=== PATIENT | male | born 1950 | race Caucasian/White ===

== ENCOUNTER 2024-07-09 20:49 | Emergency (ER) | payer MEDICARE, SELFPAY ==
[2024-07-09 20:51] VITALS: BP 122/82
--- NOTE | 2024-07-09 21:27 | ED.GENMED ---
History of Present Illness
General
Chief Complaint: Abdominal Symptoms
Source: patient and spouse
Time Seen by Provider: 07/09/24 21:04
History of Present Illness
History of Present Illness:
This patient is a 74-year-old male who says that yesterday afternoon/early evening he developed nonbloody diarrhea estimated approximately every 30 minutes. Then, this morning he also developed repeated episodes of nonbloody vomiting. He went to
the urgent care 1 PM and was prescribed medications which have not helped him which prompted his visit here. He denies fever, sick contacts, potentially spoiled food, recent travel, chest pain, dyspnea, back pain, urinary symptoms. When asked
about pain in his abdomen he says it is 'not really' pain but rather crampy discomfort just before bowel movement, otherwise no discomfort.
Past History
Past History
ED Past Medical History: Arrthythmia (afib), HTN and Other (splenic rupture, pancreatitis etiology unknown, elevated LFT's)
ED Past Surgical History: Cholecystectomy and Other (ablation w/ afib, splenic rupture w/ splenectomy,)
Social History
Tobacco: Non-smoker
Alcohol: None
Drug: None
Personal:
Living: with family
Employment: Employed (works in building maintenance)
Family History
Family History: Other (n/c)
Phy Exam
Physical Exam
Physical Exam:
GENERAL: Alert , in no apparent distress
EYE: pupils equal and reactive
NECK: Supple, no significant adenopathy.
ENT: o/p clr, mm dry
CARDIAC: Regular rate and rhythm .
LUNGS: Clear breath sounds bilaterally, no acute respiratory distress, no wheezes/rales/rhonchi
ABDOMEN: Soft, without focal tenderness, no r/g, no cvat
NEUROLOGICAL: Alert and oriented, no focal neuro deficits
SKIN: Warm and dry, skin intact.
MUSCULOSKELETAL: No edema, well perfused.
PSYCH: Normal and appropriate interaction.
Course
Orders/Labs/Results
Orders:
Orders
07/09/24 21:30
Cardiac Monitoring- Treatment ONCE
0.9% Sodium Chloride 1000 ml [Nss] 1,000 ml IV BOLUS
Ondansetron Injectable [Zofran] 4 mg IV NOW STA
07/09/24 21:38
Complete Blood Count/No Diff Urgent
Comprehensive Metabolic Panel Urgent
Lipase Urgent
07/09/24 22:04
C DIFF [C difficile Antigen & Toxins] Urgent
APRIL Source: Feces/Stool
Specimen Description:
Date Specimen was Collected: 07/09/24
Time Specimen was Collected: 23:04
Stool Culture Urgent
APRIL Source: Feces/Stool
Specimen Description:
Date Specimen was Collected: 07/09/24
Time Specimen was Collected: 22:03
07/09/24 23:49
0.9% Sodium Chloride 1000 ml [Nss] 1,000 ml IV BOLUS
Abnormal Lab Results
07/09/24
21:38
WBC 14.7 H 10^3/uL
(4.8-10.8)
RDW 16.2 H %
(11.5-14.5)
Carbon Dioxide 19 L mmol/L
(22-30)
BUN 30 H mg/dl
(9-20)
Glucose 156 H mg/dl
(70-99)
07/09/24 21:38
07/09/24 21:38
Vital Signs
Initial and Last Documented VS:
Initial Vital Signs
Temp Pulse Resp BP Pulse Ox
98.5 F 115 16 122/82 100
07/09/24 20:51 07/09/24 20:51 07/09/24 20:51 07/09/24 20:51 07/09/24 20:51
Last Documented Vital Signs
Temp Pulse Resp BP Pulse Ox
98.5 F 94 19 131/78 94
07/09/24 20:51 07/09/24 23:30 07/09/24 23:30 07/09/24 23:00 07/09/24 23:30
*Critical Care Note
Total Time (30-74mins, 75-104mins- exclusive of procedures): Not Applicable
Update Note
Update Note:
Patient presents to the Emergency Department with ____nausea vomiting diarrhea
Number and Complexity of Problems Addressed at the Encounter
� Chronic conditions affecting care:
� Acute Exacerbation and/or Progression of Chronic Illness:
� Differential Diagnosis includes: But not limited to norovirus, colitis, gastroenteritis, food poisoning, bowel obstruction, pancreatitis etc. etc. etc.
Amount and/or Complexity of Data to be Reviewed and Analyzed
� I performed an independent evaluation of and my interpretation is:
EKG:
CT:
Xrays:
Laboratory Studies:nonspecific leukocytosis, dehydration noted, otherwise nad
Other:
� Review of other/old records reveals:
� Clinical information was obtained by an independent historian: who is bedside
� Prescriptions/Medications Considered but not given:
� Further testing considered but not performed:
Risk of Complications and/or Morbidity or Mortality of Patient Management
� Social determinants of health affecting care:
� Discussion with other providers (PCP, Hospitalists, Consultants, etc):
� Escalation of care including admission/observation vs risk of discharge considered: 1050 pm pt resting comforrtably, repeat abd exam soft, nt. Pt has not had further v since arrival. Will continue to monitor closely.
106AM Pt remains well appearing, no n/v/d. Abd remains softa nd nontender. D/w pt import of f/u and reasons to rted, f/u on stool studies, etc.
ED Attending Note
-
Portions of this chart may have been created with voice recognition software.� Occasional wrong word or��sound alike� substitutions may have occurred due to the inherent limitations of voice recognition software.
Discharge Plan
Departure
Patient Disposition: Home (Routine Discharge)
Date of Disposition: 07/10/24
Time of Disposition: 01:03
Patient with high blood pressure during this ER visit?: Yes
Condition: Good
Discharge Problem:
Nausea vomiting and diarrhea
Instructions: Diarrhea in teens and adults, Nausea and Vomiting, Adult (DC), BLOOD PRESSURE
Prescriptions:
No Action
omeprazole 20 MG capsule,delayed release(DR/EC)
20 mg PO BID
rosuvastatin 10 MG tablet
10 mg PO MOTH
omega 7-ypu-vbp-fish oil 1 EACH capsule
3,000 mg PO DAILY
apixaban [Eliquis] 5 MG tablet
5 mg PO BID
diltiazem HCl 120 MG capsule,extended release 24hr
120 mg PO DAILY
metoprolol succinate 50 MG tablet extended release 24 hr
50 mg PO BID
gabapentin 300 MG capsule
300 mg PO Q8H
acetaminophen [Tylenol Extra Strength] 500 MG tablet
500 mg PO Q4HPRN PRN (Reason: mild pain) Qty: 1 0RF
oxycodone 5 MG tablet
5 mg PO Q6HPRN PRN (Reason: moderate to severe pain) Qty: 12 0RF
Referrals:
Yury Bryant MD [Family Provider] - Tomorrow
Activity Restrictions/Additional Instructions:
IF YOU DEVELOP FEVER, ABDOMINAL PAIN, REPEATED VOMITING, REPEATED DIARRHEA, BLEEDING, DIZZINESS, CHEST PAIN, TROUBLE BREATHING OR OTHER WORRISOME SIGNS, GO TO THE ER IMMEDIATELy!
Interventions
Interventions:
*Risk Screen - Suicide Last Done: 07/09/24 20:54
*Neglect/Abuse Screening Last Done: 07/09/24 20:54
YS-Vcwpox-Vubahgkenu Assessment Last Done: 07/09/24 21:47
Discharge Date and Time
Print Language: NEPALESE
[2024-07-09] MEDS: NSS 1000 IV (21:38)
[2024-07-09] MEDS: ZOFRAN 4 MG IV (21:40)
[2024-07-09 21:47] VITALS: BP 108/83
[2024-07-09 21:50] VITALS: BMI 28.6
[2024-07-09 22:00] VITALS: BP 114/79
[2024-07-09 22:11] LABS: ALT (SGPT) 30 U/L (0-50); AST (SGOT) 27 U/L (17-59); Albumin 4.6 g/dl (3.5-5.0); Alkaline Phosphatase 118 U/L (38-126); Blood Urea Nitrogen 30 mg/dl (9-20); Calcium 9.4 mg/dl (8.4-10.2); Carbon Dioxide 19 mmol/L (22-30); Chloride 106 mmol/L (98-107); Estimated Creatinine Clearance 56 ml/min; Glucose 156 mg/dl (70-99); Lipase 159 U/L (23-300); Potassium 4.3 mmol/L (3.5-5.1); Sodium 138 mmol/L (135-145); Total Bilirubin 0.9 mg/dl (0.2-1.3); eGFR 57.65
[2024-07-09 22:14] LABS: Hematocrit 48.9 % (39.0-52.0); Mean Corp Hgb Conc. 34.8 g/dL (33.0-37.0); Mean Corpuscular Hgb 28.4 pg (27.0-31.0); Mean Corpuscular Volume 81.8 fL (80.0-94.0); Mean Platelet Volume 9.4 fL (7.4-10.4); Platelet Count 357 10^3/uL (130-400); Red Blood Cell Count 5.98 10^6/uL (4.70-6.10); Red Cell Dist. Width 16.2 % (11.5-14.5); White Blood Cell Count 14.7 10^3/uL (4.8-10.8)
[2024-07-09 23:00] VITALS: BP 131/78
[2024-07-10] VITALS: BP 129/76
[2024-07-10] MEDS: NSS 1000 IV (00:29)
[2024-07-10 01:00] VITALS: BP 134/73
--- NOTE | 2024-07-10 01:21 | ED.GENMED ---
History of Present Illness
General
Chief Complaint: Abdominal Symptoms
Time Seen by Provider: 07/09/24 21:04
Past History
Past History
ED Past Medical History: Arrthythmia (afib), HTN and Other (splenic rupture, pancreatitis etiology unknown, elevated LFT's)
ED Past Surgical History: Cholecystectomy and Other (ablation w/ afib, splenic rupture w/ splenectomy,)
Social History
Tobacco: Non-smoker
Alcohol: None
Drug: None
Personal:
Living: with family
Employment: Employed (works in building maintenance)
Family History
Family History: Other (n/c)
Course
Orders/Labs/Results
Orders:
Orders
07/09/24 21:30
Cardiac Monitoring- Treatment ONCE
0.9% Sodium Chloride 1000 ml [Nss] 1,000 ml IV BOLUS
Ondansetron Injectable [Zofran] 4 mg IV NOW STA
07/09/24 21:38
Complete Blood Count/No Diff Urgent
Comprehensive Metabolic Panel Urgent
Lipase Urgent
07/09/24 22:04
C DIFF [C difficile Antigen & Toxins] Urgent
APRIL Source: Feces/Stool
Specimen Description:
Date Specimen was Collected: 07/09/24
Time Specimen was Collected: 23:04
Stool Culture Urgent
APRIL Source: Feces/Stool
Specimen Description:
Date Specimen was Collected: 07/09/24
Time Specimen was Collected: 22:03
07/09/24 23:49
0.9% Sodium Chloride 1000 ml [Nss] 1,000 ml IV BOLUS
Abnormal Lab Results
07/09/24
21:38
WBC 14.7 H 10^3/uL
(4.8-10.8)
RDW 16.2 H %
(11.5-14.5)
Carbon Dioxide 19 L mmol/L
(22-30)
BUN 30 H mg/dl
(9-20)
Glucose 156 H mg/dl
(70-99)
07/09/24 21:38
07/09/24 21:38
Vital Signs
Initial and Last Documented VS:
Initial Vital Signs
Temp Pulse Resp BP Pulse Ox
98.5 F 115 16 122/82 100
07/09/24 20:51 07/09/24 20:51 07/09/24 20:51 07/09/24 20:51 07/09/24 20:51
Last Documented Vital Signs
Temp Pulse Resp BP Pulse Ox
98.5 F 99 17 134/73 93
07/09/24 20:51 07/10/24 01:15 07/10/24 01:15 07/10/24 01:00 07/10/24 01:15
ED Attending Note
-
Portions of this chart may have been created with voice recognition software.� Occasional wrong word or��sound alike� substitutions may have occurred due to the inherent limitations of voice recognition software.
Discharge Plan
Departure
Patient Disposition: Home (Routine Discharge)
Date of Disposition: 07/10/24
Time of Disposition: 01:03
Patient with high blood pressure during this ER visit?: Yes
Condition: Good
Discharge Problem:
Nausea vomiting and diarrhea
Instructions: Diarrhea in teens and adults, Nausea and Vomiting, Adult (DC), BLOOD PRESSURE
Prescriptions:
No Action
omeprazole 20 MG capsule,delayed release(DR/EC)
20 mg PO BID
rosuvastatin 10 MG tablet
10 mg PO MOTH
omega 6-jns-ehz-fish oil 1 EACH capsule
3,000 mg PO DAILY
apixaban [Eliquis] 5 MG tablet
5 mg PO BID
diltiazem HCl 120 MG capsule,extended release 24hr
120 mg PO DAILY
metoprolol succinate 50 MG tablet extended release 24 hr
50 mg PO BID
gabapentin 300 MG capsule
300 mg PO Q8H
acetaminophen [Tylenol Extra Strength] 500 MG tablet
500 mg PO Q4HPRN PRN (Reason: mild pain) Qty: 1 0RF
oxycodone 5 MG tablet
5 mg PO Q6HPRN PRN (Reason: moderate to severe pain) Qty: 12 0RF
Referrals:
Yury Bryant MD [Family Provider] - Tomorrow
Activity Restrictions/Additional Instructions:
IF YOU DEVELOP FEVER, ABDOMINAL PAIN, REPEATED VOMITING, REPEATED DIARRHEA, BLEEDING, DIZZINESS, CHEST PAIN, TROUBLE BREATHING OR OTHER WORRISOME SIGNS, GO TO THE ER IMMEDIATELy!
Interventions
Interventions:
*Risk Screen - Suicide Last Done: 07/09/24 20:54
*General Assessment Last Done: 07/10/24 01:14
*Neglect/Abuse Screening Last Done: 07/09/24 20:54
*ED- Fall Risk Assessment Last Done: 07/10/24 01:14
GC-Qsmwzb-Pyruukemas Assessment Last Done: 07/09/24 21:47
Discharge Date and Time
Print Language: EMIRATI
== END 2024-07-10 01:42 | disposition home or self-care (01) ==
LOC: EMR 20:49
PROVIDERS: EMERGENCY PHYSICIAN Emergency Medicine; FAMILY PHYSICIAN Family Medicine
DX: R11.2 Nausea with vomiting, unspecified (principal); R19.7 Diarrhea, unspecified; I48.91 Unspecified atrial fibrillation; I10 Essential (primary) hypertension; Z90.49 Acquired absence of other specified parts of digestive tract
CPT/HCPCS: 99283; 96374; 96361; 96360; 80053; 83690; 85027; 87045; 87046; 87324; 87427; 87449

== ENCOUNTER 2024-07-10 04:48 | Emergency (ER) | payer MEDICARE, SELFPAY ==
[2024-07-10 04:54] VITALS: BP 124/78
[2024-07-10 05:25] VITALS: BP 151/61
[2024-07-10 05:33] VITALS: BMI 28.5
--- NOTE | 2024-07-10 06:21 | ED.GENMED ---
History of Present Illness
General
Chief Complaint: Abdominal Symptoms
Source: patient
Exam Limitations: none
Time Seen by Provider: 07/10/24 06:07
Nursing documentation reviewed up to this point in time: agreed with
History of Present Illness
History of Present Illness:
74-year-old male presents emergency department complaining of nausea vomiting diarrhea that began yesterday. He was seen in the emergency department yesterday, had blood testing and given IV fluids and antiemetics. He also gave stool sample that
is pending.
Past History
Past History
ED Past Medical History: Arrthythmia (afib), HTN and Other (splenic rupture, pancreatitis etiology unknown, elevated LFT's)
ED Past Surgical History: Cholecystectomy and Other (ablation w/ afib, splenic rupture w/ splenectomy,)
Social History
Tobacco: Non-smoker
Alcohol: None
Drug: None
Personal:
Living: with family
Employment: Employed (works in building maintenance)
Family History
Family History: Other (n/c)
Review of Systems
Review of Systems
Allergies reviewed?: Yes
All Other Systems: Not applicable
Constitutional: Reports no symptoms
EENT: Reports no symptoms
Respiratory: Reports no symptoms
Cardiac: Reports no symptoms
ABD/GI: Reports nausea, vomiting and diarrhea
: Reports no symptoms
Musculoskeletal: Reports no symptoms
Skin: Reports no symptoms
Neurological: Reports no symptoms
Endocrine: Reports no symptoms
Hematologic/Lymphatic: Reports no symptoms
Psychiatric: Reports no symptoms
Phy Exam
Physical Exam
Physical Exam:
Physical Exam
General: no apparent distress, not acutely ill
Neck: supple. no meningeal signs. normal posterior pharynx
Heart: s1/s2 regular rate and rhythm, no murmur. equal radial
pulses.
HEENT: Pupils equal round reactive to light, EOMI
Lungs: no acute respiratory distress. clear bilaterally
Abdomen: normal bowel sounds. not tender. no CVAT
Neuro: alert and oriented. no focal neurological deficits cranial nerves II through XII intact
Skin: no rash
Psychiatric: well kept. interactive and cooperative
Extremities: no edema. no calf tenderness. negative homans. good distal pulses
Sepsis
Sepsis Screening
Sepsis Assessment: Sepsis Ruled Out
Sepsis Screen
Sepsis Screen: Sepsis Ruled Out
Date: 07/10/24
Time: 09:24
Course
Orders/Labs/Results
Orders:
Orders
07/10/24 06:20
Cardiac Monitoring- Treatment ONCE
IV Insert/Care/Rem.- Treatment PRN
Pulse Ox/cont/shift [RESP] Stat
Quantity: 1
07/10/24 06:21
Lactated Ringers [Lr] 1,000 ml IV BOLUS
07/10/24 06:37
Complete Blood Count/With Diff Urgent
Comprehensive Metabolic Panel Urgent
Abnormal Lab Results
07/10/24
06:37
WBC 11.9 H 10^3/uL
(4.8-10.8)
RDW 16.1 H %
(11.5-14.5)
Abs Immat Gran (auto) 0.1 H 10^3/uL
(0-0.05)
Absolute Neuts (auto) 9.9 H 10^3/uL
(1.4-6.5)
Absolute Lymphs (auto) 0.7 L 10^3/uL
(1.2-3.4)
Absolute Monos (auto) 1.1 H 10^3/uL
(0.1-0.6)
Immature Gran % 0.6 H %
(0-0.5)
Neutrophils % 83.6 H %
(42.2-75.2)
Lymphocytes % 5.8 L %
(20.5-51.1)
Monocytes % 9.5 H %
(1.7-9.3)
Chloride 109 H mmol/L
(98-107)
Carbon Dioxide 18 L mmol/L
(22-30)
BUN 29 H mg/dl
(9-20)
Glucose 133 H mg/dl
(70-99)
07/10/24 06:37
07/10/24 06:37
Vital Signs
Initial and Last Documented VS:
Initial Vital Signs
Temp Pulse Resp BP Pulse Ox
97.8 F 106 24 124/78 95
07/10/24 04:54 07/10/24 04:54 07/10/24 04:54 07/10/24 04:54 07/10/24 04:54
Last Documented Vital Signs
Temp Pulse Resp BP Pulse Ox
97.8 F 97 17 151/61 92
07/10/24 04:54 07/10/24 05:30 07/10/24 05:30 07/10/24 05:25 07/10/24 05:30
MDM/Problems Addressed
Differential Diagnosis Includes:
Gastroenteritis, norovirus, diverticulitis
MDM/Problems Addressed:
74-year-old male with nausea vomiting diarrhea. Abdomen exam benign. Tolerating p.o. in ED. He states he feels somewhat better and would like to be discharged. He has had episodes of diarrhea. Stool cultures pending.
Chronic conditions affecting care: Arrhythmia
*Pulse Oximetry
Patient hypoxic: no
*Critical Care Note
Total Time (30-74mins, 75-104mins- exclusive of procedures): Not Applicable
Data Reviewed
Review of Other/Old Records Reveals: Labs
Source: records
Patient Management
Social determinants of health affecting care: Living situation and Strong social support
Escalation/DeEscalation of care consider admission/obs:
Admit not indicated
ED Attending Note
-
Portions of this chart may have been created with voice recognition software.� Occasional wrong word or��sound alike� substitutions may have occurred due to the inherent limitations of voice recognition software.
Discharge Plan
Departure
Patient Disposition: Home (Routine Discharge)
Date of Disposition: 07/10/24
Time of Disposition: 08:28
Patient with high blood pressure during this ER visit?: Yes
Condition: Good
Discharge Problem:
Nausea vomiting and diarrhea
Instructions: Diarrhea in teens and adults, Nausea and Vomiting, Adult (DC), BLOOD PRESSURE
Prescriptions:
No Action
omeprazole 20 MG capsule,delayed release(DR/EC)
20 mg PO BID
rosuvastatin 10 MG tablet
10 mg PO MOTH
omega 4-tgb-xgx-fish oil 1 EACH capsule
3,000 mg PO DAILY
apixaban [Eliquis] 5 MG tablet
5 mg PO BID
diltiazem HCl 120 MG capsule,extended release 24hr
120 mg PO DAILY
metoprolol succinate 50 MG tablet extended release 24 hr
50 mg PO BID
gabapentin 300 MG capsule
300 mg PO Q8H
acetaminophen [Tylenol Extra Strength] 500 MG tablet
500 mg PO Q4HPRN PRN (Reason: mild pain) Qty: 1 0RF
oxycodone 5 MG tablet
5 mg PO Q6HPRN PRN (Reason: moderate to severe pain) Qty: 12 0RF
Referrals:
Yury Bryant MD [Family Provider] - Call in 1-3 days for appt
Interventions
Interventions:
*Risk Screen - Suicide Last Done: 07/10/24 05:31
*General Assessment Last Done: 07/10/24 05:31
*Neglect/Abuse Screening Last Done: 07/10/24 05:31
KO-Pxxyrd-Fyblrjwcyf Assessment Last Done: 07/10/24 05:28
Discharge Date and Time
Print Language: ARGENTINE
[2024-07-10] MEDS: LR 1000 IV (06:44)
[2024-07-10 06:46] LABS: % Basophils 0.2 % (0-2); % Eosinophils 0.3 % (0-6); % Immature Granulocytes 0.6 % (0-0.5); % Lymphocytes 5.8 % (20.5-51.1); % Monocytes 9.5 % (1.7-9.3); % Neutrophils 83.6 % (42.2-75.2); Absolute Immature Granulocytes 0.1 10^3/uL (0-0.05); Absolute Lymphocytes 0.7 10^3/uL (1.2-3.4); Absolute Monocytes 1.1 10^3/uL (0.1-0.6); Absolute Neutrophils 9.9 10^3/uL (1.4-6.5); Hematocrit 46.9 % (39.0-52.0); Hemoglobin 15.9 g/dL (13.0-18.0); Mean Corp Hgb Conc. 33.9 g/dL (33.0-37.0); Mean Corpuscular Hgb 28.1 pg (27.0-31.0); Mean Corpuscular Volume 82.9 fL (80.0-94.0); Mean Platelet Volume 9.8 fL (7.4-10.4); Nucleated Red Blood Cells % 0 % (-); Platelet Count 352 10^3/uL (130-400); Red Blood Cell Count 5.66 10^6/uL (4.70-6.10); Red Cell Dist. Width 16.1 % (11.5-14.5); White Blood Cell Count 11.9 10^3/uL (4.8-10.8)
[2024-07-10 06:47] VITALS: BP 136/79
[2024-07-10 07:00] VITALS: BP 123/72
[2024-07-10 07:00] LABS: ALT (SGPT) 27 U/L (0-50); AST (SGOT) 26 U/L (17-59); Alkaline Phosphatase 109 U/L (38-126); Blood Urea Nitrogen 29 mg/dl (9-20); Calcium 8.7 mg/dl (8.4-10.2); Carbon Dioxide 18 mmol/L (22-30); Chloride 109 mmol/L (98-107); Estimated Creatinine Clearance 67 ml/min; Glucose 133 mg/dl (70-99); Potassium 4.2 mmol/L (3.5-5.1); Sodium 139 mmol/L (135-145); Total Bilirubin 0.8 mg/dl (0.2-1.3); eGFR > 60.00
== END 2024-07-10 08:30 | disposition home or self-care (01) ==
LOC: EMR 04:48
PROVIDERS: EMERGENCY PHYSICIAN Emergency Medicine; FAMILY PHYSICIAN Family Medicine
DX: R11.2 Nausea with vomiting, unspecified (principal); R19.7 Diarrhea, unspecified; I48.91 Unspecified atrial fibrillation; I10 Essential (primary) hypertension; G47.30 Sleep apnea, unspecified; M19.90 Unspecified osteoarthritis, unspecified site; E78.5 Hyperlipidemia, unspecified; Z90.81 Acquired absence of spleen; Z90.49 Acquired absence of other specified parts of digestive tract; Z79.01 Long term (current) use of anticoagulants
CPT/HCPCS: 99284; 96360; 80053; 85025

== ENCOUNTER 2024-09-06 17:32 | Emergency (ER) | payer MEDICARE, SELFPAY ==
[2024-09-06 17:35] VITALS: BP 160/91
[2024-09-06] MEDS: KEFLEX 500 MG PO (18:56)
[2024-09-06] MEDS: MOTRIN 600 MG PO (19:30)
--- NOTE | 2024-09-06 19:58 | ED.MUSCINJ ---
HPI-Injury
General
Chief Complaint: Musculo-Skeletal Complaint
Source: patient
Exam Limitations: none
Time Seen by Provider: 09/06/24 18:03
Nursing documentation reviewed up to this point in time: agreed with
History of Present Illness-Injury
Is this injury a work related problem?: No
Is pt an associate of [facility]/[place]?: No
Initial Injury comments:
Patient to ED with complaint of finger laceration left distal 5th finger Cut finger on saber saw. He was seen at and sent to ED because of open wound status. Brought self to ED.
Past History
Past History
ED Past Medical History: Arrthythmia (afib), HTN and Other (splenic rupture, pancreatitis etiology unknown, elevated LFT's)
ED Past Surgical History: Cholecystectomy and Other (ablation w/ afib, splenic rupture w/ splenectomy,)
Social History
Tobacco: Non-smoker
Alcohol: None
Drug: None
Personal:
Living: with family
Employment: Employed (works in building maintenance)
Family History
Family History: Other (n/c)
Review of Systems
Review of Systems
Allergies reviewed?: Yes
All Other Systems: ROS reviewed and negative except as documented in HPI and ROS
Constitutional: Reports no symptoms
Musculoskeletal: Reports joint pain (Pain to left distal 5th finger)
Skin: Reports other (laceration to left distal 5th finger.)
Neurological: Reports no symptoms
Psychiatric: Reports no symptoms
Musculoskeletal Injury Exam
Musculoskeletal Injury Exam
Left Distal Fifth Finger:
Pain with Movement?: Moderate
Tender to palpation?: Moderate
Soft tissue swelling?: Moderate
External deformity and angulation?: None
Joint effusion?: None
Contusion?: Moderate
Hematoma-local bleeding into tissue?: Moderate
Strain- Sprain- Tear (Connective tissue injury)?: None
Crepitus with movement?: No
Joint instability?: No
Malalignment/deformity?: No
Range of motion: Full
Distal skin color and temperature: normal-warm & good color
Capillary Refill: normal
Normal distal neurovascular exam?: Yes
Skin Exam
Laceration
Left Distal Fifth Finger:
Length in cm: 1.5
Orientation: diagonal
Type of Laceration: simple
Any active bleeding?: low grade venous oozing
Distal skin color and temperature: normal-warm & good color
Normal distal neurovascular exam: Yes
Range of motion: full
Phy Exam
General Physical Exam
General Presentation: moderate distress
General age: appears stated age
General Skin: warm and dry
General Habitus: normal
General Mental: alert
Musculoskeletal Exam
Musculoskeletal Exam: full ROM and neuro vasc intact
Skin Exam
Skin Exam: normal color, warm/dry and no rash
Psychiatric Exam
Psychiatric Exam: normal mood/affect
Injury Course
Orders/Labs/Results
Orders:
Orders
09/06/24 18:22
Finger(s)/Thumb 2 View Lt [CR Finger(s)/thumb Min 2 Vw Lt] Urgent
Comment:
Reason For Exam: trauma
09/06/24 18:48
Cephalexin Monohydrate [Keflex] 500 mg PO NOW STA
09/06/24 19:17
Ibuprofen [Motrin] 600 mg PO NOW STA
*Radiology
Radiology exam reviewed: radiology read reviewed
*Pulse Oximetry
Patient hypoxic: no
*Critical Care Note
Total Time (30-74mins, 75-104mins- exclusive of procedures): Not Applicable
Update Note
Update Note:
Patient to ED for laceration repair to left distal 5th finger. COmminuted fx to distal phalanx of 5th finger. Discussed xray findings with him. Will place on Keflex as fx is open. Laceration repair completed without incident Will discharge home.
He fill followup wt PCP in 2 days for a wound check, sutures to be removed in 7-10 days.
ED Attending Note
-
Portions of this chart may have been created with voice recognition software.� Occasional wrong word or��sound alike� substitutions may have occurred due to the inherent limitations of voice recognition software.
Discharge Plan
Departure
Patient Disposition: Home (Routine Discharge)
Date of Disposition: 09/06/24
Time of Disposition: 19:43
Patient with high blood pressure during this ER visit?: No
Condition: Good
Covid-19: Not Applicable
Discharge Problem:
Finger fracture, Finger laceration
Instructions: Finger fracture, Ibuprofen, Using Cold for Pain, Stitches - ED discharge instructions, Laceration
Prescriptions:
New
hydrocodone-acetaminophen 5-325 mg tablet
1 tab PO Q4H PRN (Reason: Pain) Qty: 14 0RF
cephalexin 500 mg capsule
500 mg PO BID 10 Days Qty: 20 0RF
No Action
omeprazole 20 MG capsule,delayed release(DR/EC)
20 mg PO BID
rosuvastatin 10 MG tablet
10 mg PO MOTH
omega 4-zmw-mue-fish oil 1 EACH capsule
3,000 mg PO DAILY
apixaban [Eliquis] 5 MG tablet
5 mg PO BID
diltiazem HCl 120 MG capsule,extended release 24hr
120 mg PO DAILY
metoprolol succinate 50 MG tablet extended release 24 hr
50 mg PO BID
gabapentin 300 MG capsule
300 mg PO Q8H
acetaminophen [Tylenol Extra Strength] 500 MG tablet
500 mg PO Q4HPRN PRN (Reason: mild pain) Qty: 1 0RF
oxycodone 5 MG tablet
5 mg PO Q6HPRN PRN (Reason: moderate to severe pain) Qty: 12 0RF
Referrals:
Yury Bryant MD [Family Provider, Family Practice]
Referral Note: Sutures can be removed in 7-10 days
Interventions
Interventions:
*Risk Screen - Suicide Last Done: 09/06/24 17:36
*General Assessment Last Done: 09/06/24 17:36
*Neglect/Abuse Screening Last Done: 09/06/24 17:36
*ED COVID-19 Vaccine History Last Done: 09/06/24 17:36
Discharge Date and Time
Print Language: YEMENI
[2024-09-06 20:08] VITALS: BP 132/68
== END 2024-09-06 20:08 | disposition home or self-care (01) ==
LOC: EMR 17:32
PROVIDERS: EMERGENCY PHYSICIAN Emergency Medicine; FAMILY PHYSICIAN Family Medicine
DX: S62.637B Displaced fracture of distal phalanx of left little finger, initial encounter for open fracture (principal); W29.8XXA Contact with other powered hand tools and household machinery, initial encounter; I48.91 Unspecified atrial fibrillation; I10 Essential (primary) hypertension; Z90.49 Acquired absence of other specified parts of digestive tract
CPT/HCPCS: 99283; 12001; 73140